=== PATIENT | female | born 1945 | race Caucasian/White ===

== ENCOUNTER 2018-02-02 15:40 | Inpatient (IN) | payer MEDICARE, MEDICAID ==
[~2018-02-02] VITALS: Ht 152.4 cm; Wt 59.0 kg
[2018-02-02] MEDS ORDERED: DOCUSATE 100 MG CAPSULE PO PRN (16:00)
[2018-02-02] MEDS ORDERED: PLEASE ENTER ALLERGIES MC SCH (16:30)
[2018-02-02 16:36] VITALS: BP 102/62
[2018-02-02 17:30] LABS: CHOLESTEROL, TOTAL 233 mg/dL (140-239); TRIGLYCERIDES 550 mg/dL (50-200)
[2018-02-02 17:56] LABS: FREE T4 (FREE THYROXINE) 0.69 ng/dL (0.76-1.46); HDL CHOL % 17 % (28-40); HDL CHOLESTEROL (DIRECT) 39 mg/dL (40-60)
[2018-02-02 20:10] VITALS: BP 124/70
[2018-02-02] MEDS ORDERED: METO25TA35 PO (21:15)
[2018-02-02] MEDS ORDERED: BUDE10.2 INH (21:15)
[2018-02-02] MEDS ORDERED: LISI-170 PO (21:15)
[2018-02-02] MEDS ORDERED: INSU100C SQ-INSULIN (21:15)
[2018-02-02] MEDS ORDERED: AMLO5TAB7 PO (21:15)
[2018-02-02] MEDS ORDERED: QUET50TA5 PO (21:15)
[2018-02-02] MEDS ORDERED: MIRT30TA PO (21:15)
[2018-02-02] MEDS ORDERED: CLON0.1T PO (21:15)
[2018-02-02] MEDS ORDERED: INSU100V8 SQ ×2 (21:15)
[2018-02-02] MEDS ORDERED: PREG100C PO (21:15)
[2018-02-02] MEDS ORDERED: ALBU0.63 NEB (21:15)
[2018-02-02] MEDS ORDERED: LEVA1.2527 INH (21:15)
[2018-02-02] MEDS ORDERED: CHOL100014 PO (21:15)
[2018-02-02] MEDS ORDERED: LORA1TAB PO (21:15)
[2018-02-02] MEDS ORDERED: LEVO112T2 PO (21:15)
[2018-02-02] MEDS ORDERED: TRAZ-136 PO (21:15)
[2018-02-02] MEDS ORDERED: ACET325T14 PO (21:15)
[2018-02-02] MEDS ORDERED: DIVA250T4 PO (21:15)
[2018-02-02] MEDS ORDERED: ACETAMINOPHEN 325 MG TABLET PO PRN (21:30)
[2018-02-02] MEDS ORDERED: METOPROLOL TARTRATE 50 MG TABLET PO SCH (21:30)
[2018-02-02] MEDS ORDERED: ALBUTEROL/IPRATROPIUM 2.5MG/0.5MG, 3 ML NEB PRN (21:30)
[2018-02-02] MEDS ORDERED: AMLODIPINE 5 MG TABLET PO SCH (22:00)
[2018-02-02] MEDS ORDERED: INSULIN GLARGINE 100 UNITS/ML, PEN SQ-INSULIN SCH (22:00)
[2018-02-02] MEDS: QUETIAPINE 25MG TABLET PO SCH (22:52)
[2018-02-02] MEDS: PREGABALIN 100 MG CAPSULE PO SCH (22:52)
[2018-02-02] MEDS: DIVALPROEX 250 MG TABLET.DR PO SCH (22:53)
[2018-02-02] MEDS: MIRTAZAPINE 15 MG TABLET PO SCH (22:53)
[2018-02-02] MEDS: LISINOPRIL 20 MG TABLET PO SCH (22:54)
[2018-02-03] MEDS: LEVOTHYROXINE 112 MCG TABLET PO SCH (06:12)
[2018-02-03] MEDS: INSULIN LISPRO 100 UNITS/ML, PEN SQ-INSULIN SCH ×4 (07:20→20:54)
[2018-02-03 07:43] VITALS: BP 165/82
[2018-02-03] MEDS: METOPROLOL TARTRATE 25 MG TABLET PO SCH ×3 (07:43→21:17)
[2018-02-03] MEDS ORDERED: CLONIDINE HCL 0.1 MG PO PRN (08:30)
[2018-02-03] MEDS ORDERED: LEVALBUTEROL HCL 1.25 MG INH PRN (08:30)
[2018-02-03] MEDS ORDERED: METOPROLOL TARTRATE 25 MG TABLET PO SCH (08:30)
[2018-02-03] MEDS ORDERED: ALBUTEROL SULFATE 2.5 MG/3 ML NEB PRN (08:30)
[2018-02-03 08:56] VITALS: BP 155/80
[2018-02-03] MEDS ORDERED: INSULIN GLARGINE 100 UNITS/ML, PEN SQ-INSULIN SCH (09:00)
[2018-02-03] MEDS ORDERED: AMLODIPINE 5 MG TABLET PO SCH (09:00)
[2018-02-03] MEDS ORDERED: PREGABALIN 100 MG PO SCH (09:00)
[2018-02-03] MEDS ORDERED: CHOLECALCIFEROL 1,000 UNIT TABLET PO SCH (09:00)
[2018-02-03] MEDS: DIVALPROEX 250 MG TABLET.DR PO SCH ×2 (09:01→21:14)
[2018-02-03] MEDS: LISINOPRIL 20 MG TABLET PO SCH ×2 (09:01→21:22)
[2018-02-03] MEDS: PREGABALIN 100 MG CAPSULE PO SCH ×2 (09:01→21:15)
[2018-02-03] MEDS: QUETIAPINE 25MG TABLET PO SCH ×2 (09:01→21:16)
[2018-02-03] MEDS: CHOLECALCIFEROL 1,000 UNIT TABLET PO SCH (09:01)
[2018-02-03] MEDS: AMLODIPINE 5 MG TABLET PO SCH (09:01)
[2018-02-03] MEDS: FLUTICASONE/VILANTEROL 200-25MCG/INH INH SCH (09:12)
[2018-02-03] MEDS: INSULIN GLARGINE 100 UNITS/ML, PEN SQ-INSULIN SCH ×2 (09:18→21:10)
[2018-02-03 13:49] LABS: MICROSCOPIC NOT IND
[2018-02-03 13:52] LABS: CULTURE INDICATED? NO
[2018-02-03 15:10] VITALS: BP 132/78
[2018-02-03] MEDS: LORazepam 1MG TABLET PO PRN (15:15)
[2018-02-03] MEDS ORDERED: NICOTINE 21 MG/24 HR PATCH.TD24 ONE (15:28)
[2018-02-03] MEDS: NICOTINE 21 MG/24 HR PATCH.TD24 TD SCH (15:30)
[2018-02-03 19:36] VITALS: BP 126/70
[2018-02-03] MEDS: MIRTAZAPINE 15 MG TABLET PO SCH (21:15)
[2018-02-04] MEDS: LEVOTHYROXINE 112 MCG TABLET PO SCH (05:27)
[2018-02-04] MEDS ORDERED: LEVOTHYROXINE 150 MCG TABLET PO SCH (06:00)
[2018-02-04] MEDS: INSULIN LISPRO 100 UNITS/ML, PEN SQ-INSULIN SCH ×4 (07:00→20:18)
[2018-02-04] MEDS: METOPROLOL TARTRATE 25 MG TABLET PO SCH ×3 (07:49→20:41)
[2018-02-04] MEDS: DIVALPROEX 250 MG TABLET.DR PO SCH ×2 (08:11→20:40)
[2018-02-04] MEDS: PREGABALIN 100 MG CAPSULE PO SCH ×2 (08:11→20:40)
[2018-02-04] MEDS: CHOLECALCIFEROL 1,000 UNIT TABLET PO SCH (08:11)
[2018-02-04] MEDS: LISINOPRIL 20 MG TABLET PO SCH ×2 (08:11→20:41)
[2018-02-04] MEDS: AMLODIPINE 5 MG TABLET PO SCH (08:11)
[2018-02-04] MEDS: QUETIAPINE 25MG TABLET PO SCH ×2 (08:12→20:40)
[2018-02-04] MEDS: INSULIN GLARGINE 100 UNITS/ML, PEN SQ-INSULIN SCH ×2 (08:12→20:16)
[2018-02-04 08:17] VITALS: BP 110/69
[2018-02-04] MEDS: FLUTICASONE/VILANTEROL 200-25MCG/INH INH SCH (08:30)
[2018-02-04] MEDS: NICOTINE 21 MG/24 HR PATCH.TD24 TD SCH (09:44)
[2018-02-04] MEDS: LORazepam 1MG TABLET PO PRN (15:00)
[2018-02-04 15:01] VITALS: BP 123/81
[2018-02-04] MEDS ORDERED: NICOTINE GUM 2 MG BC PRN (15:30)
[2018-02-04 20:00] VITALS: BP 105/67
[2018-02-04] MEDS: MIRTAZAPINE 15 MG TABLET PO SCH (22:25)
[2018-02-04 22:29] VITALS: BP 95/55
[2018-02-04 22:33] VITALS: BP 105/67
[2018-02-05] MEDS: LEVOTHYROXINE 112 MCG TABLET PO SCH (04:31)
[2018-02-05] MEDS: INSULIN LISPRO 100 UNITS/ML, PEN SQ-INSULIN SCH ×4 (07:00→21:10)
[2018-02-05 07:53] VITALS: BP 131/80
[2018-02-05] MEDS: METOPROLOL TARTRATE 25 MG TABLET PO SCH ×4 (07:59→21:19)
[2018-02-05 08:00] VITALS: BP 131/80
[2018-02-05] MEDS: QUETIAPINE 25MG TABLET PO SCH ×2 (08:01→21:09)
[2018-02-05] MEDS: CHOLECALCIFEROL 1,000 UNIT TABLET PO SCH (08:01)
[2018-02-05] MEDS: PREGABALIN 100 MG CAPSULE PO SCH ×2 (08:01→21:06)
[2018-02-05] MEDS: DIVALPROEX 250 MG TABLET.DR PO SCH ×2 (08:02→21:08)
[2018-02-05] MEDS: LISINOPRIL 20 MG TABLET PO SCH ×2 (08:02→21:06)
[2018-02-05] MEDS: AMLODIPINE 5 MG TABLET PO SCH (08:02)
[2018-02-05] MEDS: NICOTINE 21 MG/24 HR PATCH.TD24 TD SCH (08:08)
[2018-02-05] MEDS: FLUTICASONE/VILANTEROL 200-25MCG/INH INH SCH (08:08)
[2018-02-05] MEDS: INSULIN GLARGINE 100 UNITS/ML, PEN SQ-INSULIN SCH ×2 (08:09→21:06)
[2018-02-05 19:27] VITALS: BP 109/71
[2018-02-05] MEDS: MIRTAZAPINE 15 MG TABLET PO SCH (21:09)
[2018-02-06] MEDS: LEVOTHYROXINE 112 MCG TABLET PO SCH (06:00)
[2018-02-06] MEDS: INSULIN LISPRO 100 UNITS/ML, PEN SQ-INSULIN SCH ×4 (07:00→20:14)
[2018-02-06 08:30] VITALS: BP 128/74
[2018-02-06] MEDS: FLUTICASONE/VILANTEROL 200-25MCG/INH INH SCH (08:52)
[2018-02-06] MEDS: DIVALPROEX 250 MG TABLET.DR PO SCH ×2 (08:52→20:06)
[2018-02-06] MEDS: PREGABALIN 100 MG CAPSULE PO SCH ×2 (08:53→20:06)
[2018-02-06] MEDS: LISINOPRIL 20 MG TABLET PO SCH ×2 (08:53→20:06)
[2018-02-06] MEDS: AMLODIPINE 5 MG TABLET PO SCH (08:53)
[2018-02-06] MEDS: CHOLECALCIFEROL 1,000 UNIT TABLET PO SCH (08:54)
[2018-02-06] MEDS: QUETIAPINE 25MG TABLET PO SCH ×2 (08:54→20:07)
[2018-02-06] MEDS: INSULIN GLARGINE 100 UNITS/ML, PEN SQ-INSULIN SCH ×2 (08:55→20:15)
[2018-02-06] MEDS: NICOTINE 21 MG/24 HR PATCH.TD24 TD SCH (08:56)
[2018-02-06] MEDS: METOPROLOL TARTRATE 25 MG TABLET PO SCH ×3 (09:03→22:20)
[2018-02-06 15:00] VITALS: BP 125/74
[2018-02-06 19:17] VITALS: BP 123/77
[2018-02-06] MEDS: MIRTAZAPINE 15 MG TABLET PO SCH (20:07)
[2018-02-07] MEDS: LEVOTHYROXINE 112 MCG TABLET PO SCH (05:47)
[2018-02-07] MEDS: INSULIN LISPRO 100 UNITS/ML, PEN SQ-INSULIN SCH ×4 (07:00→20:42)
[2018-02-07 07:13] VITALS: BP 122/69
[2018-02-07] MEDS: METOPROLOL TARTRATE 25 MG TABLET PO SCH ×3 (07:59→23:42)
[2018-02-07] MEDS: FLUTICASONE/VILANTEROL 200-25MCG/INH INH SCH (09:33)
[2018-02-07] MEDS: DIVALPROEX 250 MG TABLET.DR PO SCH ×2 (09:33→20:40)
[2018-02-07] MEDS: AMLODIPINE 5 MG TABLET PO SCH (09:34)
[2018-02-07] MEDS: PREGABALIN 100 MG CAPSULE PO SCH ×2 (09:34→20:40)
[2018-02-07] MEDS: LISINOPRIL 20 MG TABLET PO SCH ×2 (09:34→20:40)
[2018-02-07] MEDS: QUETIAPINE 25MG TABLET PO SCH ×2 (09:35→20:40)
[2018-02-07] MEDS: NICOTINE 21 MG/24 HR PATCH.TD24 TD SCH (09:35)
[2018-02-07] MEDS: INSULIN GLARGINE 100 UNITS/ML, PEN SQ-INSULIN SCH ×2 (09:37→20:42)
[2018-02-07] MEDS: CHOLECALCIFEROL 1,000 UNIT TABLET PO SCH (09:45)
[2018-02-07 15:00] VITALS: BP 151/78
[2018-02-07 19:58] VITALS: BP 126/77
[2018-02-07] MEDS: MIRTAZAPINE 15 MG TABLET PO SCH (20:41)
[2018-02-07 23:38] VITALS: BP 117/70
[2018-02-08] MEDS: ACETAMINOPHEN 325 MG TABLET PO PRN (02:43)
[2018-02-08] MEDS: LEVOTHYROXINE 112 MCG TABLET PO SCH (05:53)
[2018-02-08] MEDS: INSULIN LISPRO 100 UNITS/ML, PEN SQ-INSULIN SCH ×4 (07:00→21:09)
[2018-02-08 07:24] VITALS: BP 107/64
[2018-02-08] MEDS: METOPROLOL TARTRATE 25 MG TABLET PO SCH ×3 (07:29→23:27)
[2018-02-08] MEDS: FLUTICASONE/VILANTEROL 200-25MCG/INH INH SCH (08:46)
[2018-02-08] MEDS: DIVALPROEX 250 MG TABLET.DR PO SCH ×2 (08:46→21:07)
[2018-02-08] MEDS: PREGABALIN 100 MG CAPSULE PO SCH ×2 (08:46→21:07)
[2018-02-08] MEDS: AMLODIPINE 5 MG TABLET PO SCH (08:47)
[2018-02-08] MEDS: LISINOPRIL 20 MG TABLET PO SCH ×2 (08:47→21:08)
[2018-02-08] MEDS: CHOLECALCIFEROL 1,000 UNIT TABLET PO SCH (08:47)
[2018-02-08] MEDS: QUETIAPINE 25MG TABLET PO SCH ×2 (08:52→21:07)
[2018-02-08] MEDS: NICOTINE 21 MG/24 HR PATCH.TD24 TD SCH (08:53)
[2018-02-08] MEDS: INSULIN GLARGINE 100 UNITS/ML, PEN SQ-INSULIN SCH ×2 (08:54→21:08)
[2018-02-08 15:01] VITALS: BP 127/70
[2018-02-08 19:43] VITALS: BP 118/71
[2018-02-08] MEDS: MIRTAZAPINE 15 MG TABLET PO SCH (21:07)
[2018-02-08 23:23] VITALS: BP 123/63
[2018-02-09] MEDS: LEVOTHYROXINE 112 MCG TABLET PO SCH (06:14)
[2018-02-09] MEDS: INSULIN LISPRO 100 UNITS/ML, PEN SQ-INSULIN SCH ×4 (07:22→20:23)
[2018-02-09 07:47] VITALS: BP 113/57
[2018-02-09] MEDS: QUETIAPINE 25MG TABLET PO SCH ×2 (08:22→20:14)
[2018-02-09] MEDS: PREGABALIN 100 MG CAPSULE PO SCH ×2 (08:22→20:14)
[2018-02-09] MEDS: CHOLECALCIFEROL 1,000 UNIT TABLET PO SCH (08:22)
[2018-02-09] MEDS: LISINOPRIL 20 MG TABLET PO SCH ×2 (08:22→20:13)
[2018-02-09] MEDS: DIVALPROEX 250 MG TABLET.DR PO SCH ×2 (08:22→20:14)
[2018-02-09] MEDS: AMLODIPINE 5 MG TABLET PO SCH (08:23)
[2018-02-09] MEDS: FLUTICASONE/VILANTEROL 200-25MCG/INH INH SCH (08:23)
[2018-02-09] MEDS: METOPROLOL TARTRATE 25 MG TABLET PO SCH ×3 (08:23→21:24)
[2018-02-09 08:36] VITALS: BP 128/70
[2018-02-09] MEDS: NICOTINE 21 MG/24 HR PATCH.TD24 TD SCH (08:36)
[2018-02-09] MEDS: INSULIN GLARGINE 100 UNITS/ML, PEN SQ-INSULIN SCH ×2 (08:40→20:22)
[2018-02-09 15:39] VITALS: BP 122/65
[2018-02-09 19:44] VITALS: BP 132/86
[2018-02-09] MEDS: MIRTAZAPINE 15 MG TABLET PO SCH (20:15)
[2018-02-10] MEDS: LEVOTHYROXINE 112 MCG TABLET PO SCH (05:38)
[2018-02-10 07:23] VITALS: BP 130/77
[2018-02-10] MEDS: METOPROLOL TARTRATE 25 MG TABLET PO SCH ×3 (07:29→22:12)
[2018-02-10] MEDS: INSULIN LISPRO 100 UNITS/ML, PEN SQ-INSULIN SCH ×4 (07:30→20:18)
[2018-02-10] MEDS: FLUTICASONE/VILANTEROL 200-25MCG/INH INH SCH (09:28)
[2018-02-10] MEDS: DIVALPROEX 250 MG TABLET.DR PO SCH ×2 (09:28→20:10)
[2018-02-10] MEDS: LISINOPRIL 20 MG TABLET PO SCH ×2 (09:29→20:10)
[2018-02-10] MEDS: PREGABALIN 100 MG CAPSULE PO SCH ×2 (09:29→20:10)
[2018-02-10] MEDS: AMLODIPINE 5 MG TABLET PO SCH (09:29)
[2018-02-10] MEDS: QUETIAPINE 25MG TABLET PO SCH ×2 (09:30→20:10)
[2018-02-10] MEDS: CHOLECALCIFEROL 1,000 UNIT TABLET PO SCH (09:30)
[2018-02-10] MEDS: NICOTINE 21 MG/24 HR PATCH.TD24 TD SCH (09:31)
[2018-02-10] MEDS: INSULIN GLARGINE 100 UNITS/ML, PEN SQ-INSULIN SCH ×2 (09:32→20:18)
[2018-02-10 14:34] VITALS: BP 149/73
[2018-02-10 19:35] VITALS: BP 139/68
[2018-02-10] MEDS: MIRTAZAPINE 15 MG TABLET PO SCH (20:10)
[2018-02-11] MEDS: LEVOTHYROXINE 112 MCG TABLET PO SCH (04:41)
[2018-02-11] MEDS: INSULIN LISPRO 100 UNITS/ML, PEN SQ-INSULIN SCH ×4 (07:16→21:03)
[2018-02-11 07:41] VITALS: BP 144/73
[2018-02-11] MEDS: METOPROLOL TARTRATE 25 MG TABLET PO SCH ×3 (08:05→20:40)
[2018-02-11] MEDS: QUETIAPINE 25MG TABLET PO SCH ×2 (08:13→20:39)
[2018-02-11] MEDS: LISINOPRIL 20 MG TABLET PO SCH ×2 (08:13→20:39)
[2018-02-11] MEDS: CHOLECALCIFEROL 1,000 UNIT TABLET PO SCH (08:14)
[2018-02-11] MEDS: DIVALPROEX 250 MG TABLET.DR PO SCH ×2 (08:14→20:39)
[2018-02-11] MEDS: AMLODIPINE 5 MG TABLET PO SCH (08:14)
[2018-02-11] MEDS: PREGABALIN 100 MG CAPSULE PO SCH ×2 (08:14→20:39)
[2018-02-11] MEDS: FLUTICASONE/VILANTEROL 200-25MCG/INH INH SCH (08:25)
[2018-02-11] MEDS: INSULIN GLARGINE 100 UNITS/ML, PEN SQ-INSULIN SCH ×2 (08:26→21:01)
[2018-02-11] MEDS: NICOTINE 21 MG/24 HR PATCH.TD24 TD SCH (08:29)
[2018-02-11 15:04] VITALS: BP 125/82
[2018-02-11 19:31] VITALS: BP 131/76
[2018-02-11] MEDS: MIRTAZAPINE 15 MG TABLET PO SCH (20:50)
[2018-02-12] MEDS: LEVOTHYROXINE 112 MCG TABLET PO SCH (05:53)
[2018-02-12] MEDS: METOPROLOL TARTRATE 25 MG TABLET PO SCH ×3 (07:23→22:30)
[2018-02-12] MEDS: INSULIN LISPRO 100 UNITS/ML, PEN SQ-INSULIN SCH ×4 (07:24→21:05)
[2018-02-12 07:25] VITALS: BP 150/74
[2018-02-12] MEDS: FLUTICASONE/VILANTEROL 200-25MCG/INH INH SCH (08:42)
[2018-02-12] MEDS: AMLODIPINE 5 MG TABLET PO SCH (08:43)
[2018-02-12] MEDS: QUETIAPINE 25MG TABLET PO SCH ×2 (08:44→20:52)
[2018-02-12] MEDS: PREGABALIN 100 MG CAPSULE PO SCH ×2 (08:44→20:51)
[2018-02-12] MEDS: DIVALPROEX 250 MG TABLET.DR PO SCH ×2 (08:44→20:51)
[2018-02-12] MEDS: CHOLECALCIFEROL 1,000 UNIT TABLET PO SCH (08:45)
[2018-02-12] MEDS: LISINOPRIL 20 MG TABLET PO SCH ×2 (08:46→20:51)
[2018-02-12] MEDS: INSULIN GLARGINE 100 UNITS/ML, PEN SQ-INSULIN SCH ×2 (08:46→21:06)
[2018-02-12] MEDS: NICOTINE 21 MG/24 HR PATCH.TD24 TD SCH (08:47)
[2018-02-12 19:29] VITALS: BP 121/66
[2018-02-12] MEDS: MIRTAZAPINE 15 MG TABLET PO SCH (20:51)
[2018-02-12 22:20] VITALS: BP 119/70
[2018-02-13] MEDS: LEVOTHYROXINE 112 MCG TABLET PO SCH (06:15)
[2018-02-13] MEDS: METOPROLOL TARTRATE 25 MG TABLET PO SCH ×3 (06:16→22:51)
[2018-02-13] MEDS: INSULIN LISPRO 100 UNITS/ML, PEN SQ-INSULIN SCH ×4 (07:10→20:44)
[2018-02-13 07:50] VITALS: BP 112/61
[2018-02-13] MEDS: DIVALPROEX 250 MG TABLET.DR PO SCH ×2 (08:47→20:33)
[2018-02-13] MEDS: AMLODIPINE 5 MG TABLET PO SCH (08:47)
[2018-02-13] MEDS: CHOLECALCIFEROL 1,000 UNIT TABLET PO SCH (08:48)
[2018-02-13] MEDS: LISINOPRIL 20 MG TABLET PO SCH ×2 (08:48→20:34)
[2018-02-13] MEDS: PREGABALIN 100 MG CAPSULE PO SCH ×2 (08:48→20:33)
[2018-02-13] MEDS: QUETIAPINE 25MG TABLET PO SCH ×2 (08:48→20:33)
[2018-02-13] MEDS: FLUTICASONE/VILANTEROL 200-25MCG/INH INH SCH (08:49)
[2018-02-13] MEDS: NICOTINE 21 MG/24 HR PATCH.TD24 TD SCH (08:52)
[2018-02-13] MEDS: INSULIN GLARGINE 100 UNITS/ML, PEN SQ-INSULIN SCH ×2 (10:19→20:44)
[2018-02-13 15:08] VITALS: BP 147/73
[2018-02-13 19:09] VITALS: BP 106/71
[2018-02-13 19:16] VITALS: BP 131/80
[2018-02-13] MEDS: MIRTAZAPINE 15 MG TABLET PO SCH (20:34)
[2018-02-13 22:48] VITALS: BP 127/72
[2018-02-14 06:12] VITALS: BP 114/70
[2018-02-14] MEDS: LEVOTHYROXINE 112 MCG TABLET PO SCH (06:35)
[2018-02-14] MEDS: METOPROLOL TARTRATE 25 MG TABLET PO SCH ×3 (06:38→21:15)
[2018-02-14] MEDS: INSULIN LISPRO 100 UNITS/ML, PEN SQ-INSULIN SCH ×4 (07:30→21:05)
[2018-02-14 07:45] VITALS: BP 129/65
[2018-02-14] MEDS: FLUTICASONE/VILANTEROL 200-25MCG/INH INH SCH (09:27)
[2018-02-14] MEDS: DIVALPROEX 250 MG TABLET.DR PO SCH ×2 (09:27→21:14)
[2018-02-14] MEDS: QUETIAPINE 25MG TABLET PO SCH ×2 (09:27→21:15)
[2018-02-14] MEDS: PREGABALIN 100 MG CAPSULE PO SCH ×2 (09:28→21:14)
[2018-02-14] MEDS: AMLODIPINE 5 MG TABLET PO SCH (09:28)
[2018-02-14] MEDS: NICOTINE 21 MG/24 HR PATCH.TD24 TD SCH (09:29)
[2018-02-14] MEDS: CHOLECALCIFEROL 1,000 UNIT TABLET PO SCH (09:31)
[2018-02-14] MEDS: LISINOPRIL 20 MG TABLET PO SCH ×2 (09:32→21:16)
[2018-02-14] MEDS: INSULIN GLARGINE 100 UNITS/ML, PEN SQ-INSULIN SCH ×2 (09:47→21:04)
[2018-02-14 19:40] VITALS: BP 113/72
[2018-02-14] MEDS: MIRTAZAPINE 15 MG TABLET PO SCH (21:00)
[2018-02-15 07:20] VITALS: BP 146/77
[2018-02-15] MEDS: METOPROLOL TARTRATE 25 MG TABLET PO SCH ×3 (07:28→23:12)
[2018-02-15] MEDS: INSULIN LISPRO 100 UNITS/ML, PEN SQ-INSULIN SCH ×4 (07:43→20:36)
[2018-02-15] MEDS: LEVOTHYROXINE 112 MCG TABLET PO SCH (08:18)
[2018-02-15] MEDS: DIVALPROEX 250 MG TABLET.DR PO SCH ×2 (09:21→20:26)
[2018-02-15] MEDS: PREGABALIN 100 MG CAPSULE PO SCH ×2 (09:21→20:26)
[2018-02-15] MEDS: FLUTICASONE/VILANTEROL 200-25MCG/INH INH SCH (09:21)
[2018-02-15] MEDS: LISINOPRIL 20 MG TABLET PO SCH ×2 (09:22→20:27)
[2018-02-15] MEDS: CHOLECALCIFEROL 1,000 UNIT TABLET PO SCH (09:22)
[2018-02-15] MEDS: AMLODIPINE 5 MG TABLET PO SCH (09:22)
[2018-02-15] MEDS: QUETIAPINE 25MG TABLET PO SCH ×2 (09:22→20:28)
[2018-02-15] MEDS: INSULIN GLARGINE 100 UNITS/ML, PEN SQ-INSULIN SCH ×2 (09:23→20:38)
[2018-02-15] MEDS: NICOTINE 21 MG/24 HR PATCH.TD24 TD SCH (09:31)
[2018-02-15 14:20] VITALS: BP 126/75
[2018-02-15 19:23] VITALS: BP 114/72
[2018-02-15] MEDS: DOCUSATE 100 MG CAPSULE PO SCH (20:26)
[2018-02-15] MEDS: MIRTAZAPINE 15 MG TABLET PO SCH (20:28)
[2018-02-16] MEDS: LEVOTHYROXINE 112 MCG TABLET PO SCH (05:46)
[2018-02-16] MEDS: METOPROLOL TARTRATE 25 MG TABLET PO SCH ×3 (06:20→23:01)
[2018-02-16] MEDS: INSULIN LISPRO 100 UNITS/ML, PEN SQ-INSULIN SCH ×4 (07:00→21:05)
[2018-02-16 07:26] VITALS: BP 128/69
[2018-02-16] MEDS ORDERED: METOPROLOL TARTRATE 50 MG TABLET ONE (07:38)
[2018-02-16] MEDS: DIVALPROEX 250 MG TABLET.DR PO SCH ×2 (08:47→20:46)
[2018-02-16] MEDS: DOCUSATE 100 MG CAPSULE PO SCH ×2 (08:47→20:45)
[2018-02-16] MEDS: FLUTICASONE/VILANTEROL 200-25MCG/INH INH SCH (08:47)
[2018-02-16] MEDS: PREGABALIN 100 MG CAPSULE PO SCH ×2 (08:47→20:46)
[2018-02-16] MEDS: QUETIAPINE 25MG TABLET PO SCH ×2 (08:48→20:47)
[2018-02-16] MEDS: LISINOPRIL 20 MG TABLET PO SCH ×2 (08:48→20:46)
[2018-02-16] MEDS: AMLODIPINE 5 MG TABLET PO SCH (08:48)
[2018-02-16] MEDS: CHOLECALCIFEROL 1,000 UNIT TABLET PO SCH (08:48)
[2018-02-16] MEDS: NICOTINE 21 MG/24 HR PATCH.TD24 TD SCH (08:49)
[2018-02-16] MEDS: INSULIN GLARGINE 100 UNITS/ML, PEN SQ-INSULIN SCH ×2 (08:50→21:01)
[2018-02-16 14:57] VITALS: BP 121/71
[2018-02-16 19:32] VITALS: BP 130/81
[2018-02-16] MEDS: MIRTAZAPINE 15 MG TABLET PO SCH (20:49)
[2018-02-17] MEDS: TRAZODONE 50MG TABLET PO PRN (03:45)
[2018-02-17] MEDS: LEVOTHYROXINE 112 MCG TABLET PO SCH (06:01)
[2018-02-17] MEDS: INSULIN LISPRO 100 UNITS/ML, PEN SQ-INSULIN SCH ×4 (07:00→20:54)
[2018-02-17 07:34] VITALS: BP 121/78
[2018-02-17] MEDS: METOPROLOL TARTRATE 25 MG TABLET PO SCH ×3 (07:46→22:14)
[2018-02-17] MEDS: FLUTICASONE/VILANTEROL 200-25MCG/INH INH SCH (08:53)
[2018-02-17] MEDS: DOCUSATE 100 MG CAPSULE PO SCH ×2 (08:53→20:08)
[2018-02-17] MEDS: PREGABALIN 100 MG CAPSULE PO SCH ×2 (08:53→20:09)
[2018-02-17] MEDS: DIVALPROEX 250 MG TABLET.DR PO SCH ×2 (08:53→20:09)
[2018-02-17] MEDS: AMLODIPINE 5 MG TABLET PO SCH (08:54)
[2018-02-17] MEDS: CHOLECALCIFEROL 1,000 UNIT TABLET PO SCH (08:54)
[2018-02-17] MEDS: LISINOPRIL 20 MG TABLET PO SCH ×2 (08:54→20:09)
[2018-02-17] MEDS: QUETIAPINE 25MG TABLET PO SCH ×2 (08:54→20:10)
[2018-02-17] MEDS: INSULIN GLARGINE 100 UNITS/ML, PEN SQ-INSULIN SCH ×2 (08:55→20:55)
[2018-02-17] MEDS: NICOTINE 21 MG/24 HR PATCH.TD24 TD SCH (08:56)
[2018-02-17 14:31] VITALS: BP 126/77
[2018-02-17 20:07] VITALS: BP 145/80
[2018-02-17] MEDS: MIRTAZAPINE 15 MG TABLET PO SCH (20:13)
[2018-02-18] MEDS: TRAZODONE 50MG TABLET PO PRN (01:57)
[2018-02-18] MEDS: LEVOTHYROXINE 112 MCG TABLET PO SCH (05:40)
[2018-02-18 07:36] VITALS: BP 124/75
[2018-02-18] MEDS: AMLODIPINE 5 MG TABLET PO SCH (08:01)
[2018-02-18] MEDS: DIVALPROEX 250 MG TABLET.DR PO SCH ×2 (08:01→19:55)
[2018-02-18] MEDS: PREGABALIN 100 MG CAPSULE PO SCH ×2 (08:01→19:55)
[2018-02-18] MEDS: CHOLECALCIFEROL 1,000 UNIT TABLET PO SCH (08:01)
[2018-02-18] MEDS: INSULIN LISPRO 100 UNITS/ML, PEN SQ-INSULIN SCH ×4 (08:01→20:04)
[2018-02-18] MEDS: LISINOPRIL 20 MG TABLET PO SCH ×2 (08:01→19:56)
[2018-02-18] MEDS: DOCUSATE 100 MG CAPSULE PO SCH ×2 (08:01→19:55)
[2018-02-18] MEDS: INSULIN GLARGINE 100 UNITS/ML, PEN SQ-INSULIN SCH ×2 (08:01→20:04)
[2018-02-18] MEDS: NICOTINE 21 MG/24 HR PATCH.TD24 TD SCH (08:02)
[2018-02-18] MEDS: QUETIAPINE 25MG TABLET PO SCH ×2 (08:02→19:55)
[2018-02-18] MEDS: METOPROLOL TARTRATE 25 MG TABLET PO SCH ×3 (08:02→22:04)
[2018-02-18] MEDS: FLUTICASONE/VILANTEROL 200-25MCG/INH INH SCH (08:10)
[2018-02-18 14:31] VITALS: BP 119/70
[2018-02-18 19:50] VITALS: BP 146/78
[2018-02-18] MEDS: MIRTAZAPINE 15 MG TABLET PO SCH (19:56)
[2018-02-19] MEDS: LEVOTHYROXINE 112 MCG TABLET PO SCH (05:51)
[2018-02-19 07:08] VITALS: BP 124/73
[2018-02-19] MEDS: INSULIN LISPRO 100 UNITS/ML, PEN SQ-INSULIN SCH ×5 (07:12→20:44)
[2018-02-19] MEDS: METOPROLOL TARTRATE 25 MG TABLET PO SCH ×3 (07:32→22:33)
[2018-02-19] MEDS: PREGABALIN 100 MG CAPSULE PO SCH ×2 (08:06→20:42)
[2018-02-19] MEDS: LISINOPRIL 20 MG TABLET PO SCH ×2 (08:06→20:42)
[2018-02-19] MEDS: FLUTICASONE/VILANTEROL 200-25MCG/INH INH SCH (08:06)
[2018-02-19] MEDS: DIVALPROEX 250 MG TABLET.DR PO SCH ×2 (08:06→20:42)
[2018-02-19] MEDS: AMLODIPINE 5 MG TABLET PO SCH (08:06)
[2018-02-19] MEDS: QUETIAPINE 25MG TABLET PO SCH ×2 (08:06→20:44)
[2018-02-19] MEDS: CHOLECALCIFEROL 1,000 UNIT TABLET PO SCH (08:06)
[2018-02-19] MEDS: DOCUSATE 100 MG CAPSULE PO SCH ×2 (08:06→20:42)
[2018-02-19] MEDS: NICOTINE 21 MG/24 HR PATCH.TD24 TD SCH (08:07)
[2018-02-19] MEDS: INSULIN GLARGINE 100 UNITS/ML, PEN SQ-INSULIN SCH ×2 (08:31→20:45)
[2018-02-19 15:30] VITALS: BP 125/76
[2018-02-19 19:30] VITALS: BP 152/75
[2018-02-19] MEDS: MIRTAZAPINE 15 MG TABLET PO SCH (20:43)
[2018-02-19 22:30] VITALS: BP 148/76
[2018-02-20 06:05] VITALS: BP 148/75
[2018-02-20] MEDS: LEVOTHYROXINE 112 MCG TABLET PO SCH (06:08)
[2018-02-20] MEDS: METOPROLOL TARTRATE 25 MG TABLET PO SCH ×3 (06:09→23:33)
[2018-02-20] MEDS: ACETAMINOPHEN 325 MG TABLET PO PRN ×2 (06:13→23:38)
[2018-02-20] MEDS: INSULIN LISPRO 100 UNITS/ML, PEN SQ-INSULIN SCH ×4 (07:00→21:00)
[2018-02-20 07:30] VITALS: BP 93/55
[2018-02-20] MEDS: NICOTINE 21 MG/24 HR PATCH.TD24 TD SCH (08:29)
[2018-02-20] MEDS: CHOLECALCIFEROL 1,000 UNIT TABLET PO SCH (08:29)
[2018-02-20] MEDS: FLUTICASONE/VILANTEROL 200-25MCG/INH INH SCH (08:29)
[2018-02-20] MEDS: DOCUSATE 100 MG CAPSULE PO SCH ×2 (08:29→20:23)
[2018-02-20] MEDS: INSULIN GLARGINE 100 UNITS/ML, PEN SQ-INSULIN SCH ×2 (08:29→21:00)
[2018-02-20 08:33] VITALS: BP 145/69
[2018-02-20] MEDS: PREGABALIN 100 MG CAPSULE PO SCH ×2 (08:35→20:27)
[2018-02-20] MEDS: DIVALPROEX 250 MG TABLET.DR PO SCH ×2 (08:35→20:23)
[2018-02-20] MEDS: LISINOPRIL 20 MG TABLET PO SCH ×2 (08:35→20:24)
[2018-02-20] MEDS: AMLODIPINE 5 MG TABLET PO SCH (08:35)
[2018-02-20] MEDS: QUETIAPINE 25MG TABLET PO SCH ×2 (08:36→20:26)
[2018-02-20 16:00] VITALS: BP 113/71
[2018-02-20 19:28] VITALS: BP 136/72
[2018-02-20] MEDS: MIRTAZAPINE 15 MG TABLET PO SCH (20:24)
[2018-02-21] MEDS: TRAZODONE 50MG TABLET PO PRN ×2 (01:36→20:50)
[2018-02-21] MEDS: LORazepam 1MG TABLET PO PRN ×2 (03:00→23:29)
[2018-02-21] MEDS: LEVOTHYROXINE 112 MCG TABLET PO SCH (07:16)
[2018-02-21 07:26] VITALS: BP 143/78
[2018-02-21] MEDS: METOPROLOL TARTRATE 25 MG TABLET PO SCH ×3 (07:32→23:05)
[2018-02-21] MEDS: INSULIN LISPRO 100 UNITS/ML, PEN SQ-INSULIN SCH ×4 (07:39→20:51)
[2018-02-21] MEDS ORDERED: CLON1PAT2 TD (08:19)
[2018-02-21] MEDS ORDERED: DOCU-131 PO (08:19)
[2018-02-21] MEDS ORDERED: NICO-487 TD (08:19)
[2018-02-21] MEDS ORDERED: QUET25TA PO (08:19)
[2018-02-21] MEDS ORDERED: DIVA-59 PO (08:19)
[2018-02-21] MEDS: DOCUSATE 100 MG CAPSULE PO SCH ×2 (09:57→20:19)
[2018-02-21] MEDS: FLUTICASONE/VILANTEROL 200-25MCG/INH INH SCH (09:57)
[2018-02-21] MEDS: AMLODIPINE 5 MG TABLET PO SCH (09:58)
[2018-02-21] MEDS: LISINOPRIL 20 MG TABLET PO SCH ×2 (09:58→20:20)
[2018-02-21] MEDS: PREGABALIN 100 MG CAPSULE PO SCH ×2 (09:58→20:20)
[2018-02-21] MEDS: DIVALPROEX 250 MG TABLET.DR PO SCH ×2 (09:58→20:20)
[2018-02-21] MEDS: QUETIAPINE 25MG TABLET PO SCH ×2 (09:59→20:21)
[2018-02-21] MEDS: INSULIN GLARGINE 100 UNITS/ML, PEN SQ-INSULIN SCH ×2 (10:00→20:45)
[2018-02-21] MEDS: CHOLECALCIFEROL 1,000 UNIT TABLET PO SCH (10:01)
[2018-02-21] MEDS: NICOTINE 21 MG/24 HR PATCH.TD24 TD SCH (10:01)
[2018-02-21 19:40] VITALS: BP 127/79
[2018-02-21] MEDS: MIRTAZAPINE 15 MG TABLET PO SCH (20:21)
[2018-02-21] MEDS: ACETAMINOPHEN 325 MG TABLET PO PRN (21:40)
[2018-02-22] MEDS: LEVOTHYROXINE 112 MCG TABLET PO SCH (05:17)
[2018-02-22] MEDS: METOPROLOL TARTRATE 25 MG TABLET PO SCH (07:20)
[2018-02-22 07:38] VITALS: BP 128/73
[2018-02-22] MEDS: INSULIN LISPRO 100 UNITS/ML, PEN SQ-INSULIN SCH ×2 (07:55→11:27)
[2018-02-22] MEDS: DOCUSATE 100 MG CAPSULE PO SCH (09:17)
[2018-02-22] MEDS: FLUTICASONE/VILANTEROL 200-25MCG/INH INH SCH (09:17)
[2018-02-22] MEDS: PREGABALIN 100 MG CAPSULE PO SCH (09:17)
[2018-02-22] MEDS: DIVALPROEX 250 MG TABLET.DR PO SCH (09:17)
[2018-02-22] MEDS: QUETIAPINE 25MG TABLET PO SCH (09:18)
[2018-02-22] MEDS: CHOLECALCIFEROL 1,000 UNIT TABLET PO SCH (09:18)
[2018-02-22] MEDS: AMLODIPINE 5 MG TABLET PO SCH (09:18)
[2018-02-22] MEDS: LISINOPRIL 20 MG TABLET PO SCH (09:18)
[2018-02-22] MEDS: NICOTINE 21 MG/24 HR PATCH.TD24 TD SCH (09:20)
[2018-02-22] MEDS: INSULIN GLARGINE 100 UNITS/ML, PEN SQ-INSULIN SCH (09:20)
== END 2018-02-22 11:33 | DRG 57 ==
LOC: 3E 15:40
PROVIDERS: ADMIT Psychiatry & Neurology Psychosomatic Medicine; ATTEND Psychiatry & Neurology Psychosomatic Medicine
DX: G30.9 Alzheimer's disease, unspecified (principal); F01.51 Vascular dementia, unspecified severity, with behavioral disturbance; F02.81 Dementia in other diseases classified elsewhere, unspecified severity, with behavioral disturbance; I10 Essential (primary) hypertension; E11.51 Type 2 diabetes mellitus with diabetic peripheral angiopathy without gangrene; I25.10 Atherosclerotic heart disease of native coronary artery without angina pectoris; J44.9 Chronic obstructive pulmonary disease, unspecified; L68.0 Hirsutism; K21.9 Gastro-esophageal reflux disease without esophagitis; F17.210 Nicotine dependence, cigarettes, uncomplicated; E66.9 Obesity, unspecified; E03.9 Hypothyroidism, unspecified; G89.29 Other chronic pain; F25.0 Schizoaffective disorder, bipolar type; F32.9 Major depressive disorder, single episode, unspecified; G47.33 Obstructive sleep apnea (adult) (pediatric); G47.00 Insomnia, unspecified; R62.50 Unspecified lack of expected normal physiological development in childhood; E78.1 Pure hyperglyceridemia; K59.00 Constipation, unspecified; Z81.8 Family history of other mental and behavioral disorders; Z83.49 Family history of other endocrine, nutritional and metabolic diseases; Z82.61 Family history of arthritis; Z82.49 Family history of ischemic heart disease and other diseases of the circulatory system; Z79.4 Long term (current) use of insulin; Z79.899 Other long term (current) drug therapy; Z87.820 Personal history of traumatic brain injury; Z99.81 Dependence on supplemental oxygen; Z71.6 Tobacco abuse counseling; Z68.25 Body mass index [BMI] 25.0-25.9, adult
CPT/HCPCS: 36415; 80061; 81003; 82140; 82607; 82962; 84439; 84443; 86592; 93005; 92523-GN; G0515-GN; J1815